=== PATIENT | female | born 1990 | race African-American/Black ===

== ENCOUNTER 2018-06-09 16:27 | Emergency (ER) | payer MEDICAID ==
[~2018-06-09] VITALS: Ht 167.6 cm; Wt 130.0 kg
[2018-06-09 16:32] VITALS: BP 152/80
== END 2018-06-09 19:56 | disposition left against medical advice (07) ==
LOC: ER 16:27
DX: F41.9 Anxiety disorder, unspecified (principal); Z53.21 Procedure and treatment not carried out due to patient leaving prior to being seen by health care provider

== ENCOUNTER 2019-03-29 11:38 | Emergency (ER) | payer MEDICAID ==
[~2019-03-29] VITALS: Ht 182.9 cm; Wt 110.0 kg
[2019-03-29] MEDS ORDERED: ACETAMINOPHEN 500MG TABLET PO ONE (12:30)
[2019-03-29] MEDS ORDERED: IBUPROFEN 800MG TABLET PO ONE (12:30)
[2019-03-29 13:35] VITALS: BP 139/80
== END 2019-03-29 13:53 | disposition home or self-care (01) ==
LOC: ER 11:44
DX: S39.012A Strain of muscle, fascia and tendon of lower back, initial encounter (principal); V43.52XA Car driver injured in collision with other type car in traffic accident, initial encounter; Y93.89 Activity, other specified; Y92.410 Unspecified street and highway as the place of occurrence of the external cause
CPT/HCPCS: 72100; 81025; 99283